=== PATIENT | male | born 1990 | race Hispanic/Latino ===

== ENCOUNTER 2018-02-20 11:34 | Emergency (ER) | payer SELFPAY ==
--- NOTE | 2018-02-20 14:55 | RAD ---
LEFT FOOT THREE VIEWS: History: Foot pain. FINDINGS: Joint spaces all appear fairly well preserved. Spur at the insertion of the Achilles tendon on the ca lcaneus is noted. There is some arthritic changes of the ankle joint seen. There is some deformity to the dorsal side of the talus which is probably on the basis of old injury. IMPRESSION: Arthritic changes of the ankle and some arthritic change to the base of the metatarsals. No acute bon y process. Old appearing injury along the dorsal side of the talus. POS: [facility]
--- NOTE | 2018-02-20 14:56 | RAD ---
PORTABLE AP CHEST RADIOGRAPH RIGHT RIBS THREE VIEWS: Date: 02-20-18 History: Right rib pain. Comparison: 11-16-17 FINDINGS: Cardiac silhouette and pulmonary vasculature are within normal limits. The lungs are clear. No pneumo thorax or pleural effusion is seen. No right sided rib fracture is appreciated. IMPRESSION: 1. No acute cardiopulmonary process. 2. No right sided rib fracture visualized. POS: [facility]
[2018-02-20] MEDS ORDERED: Ketorolac Tromethamine 30 MG/ML VIAL ONE (14:58)
== END 2018-02-20 13:16 | disposition home or self-care (01) ==
LOC: ERS 11:34
DX: M25.572 Pain in left ankle and joints of left foot (principal); R07.81 Pleurodynia; F17.210 Nicotine dependence, cigarettes, uncomplicated
CPT/HCPCS: 96372; J1885

== ENCOUNTER 2018-06-28 17:16 | Emergency (ER) | payer SELFPAY | END 2018-06-28 18:03 | disposition home or self-care (01) | LOC: ERS 17:16 | DX: S39.012A Strain of muscle, fascia and tendon of lower back, initial encounter (principal); S16.1XXA Strain of muscle, fascia and tendon at neck level, initial encounter; F17.210 Nicotine dependence, cigarettes, uncomplicated; X50.0XXA Overexertion from strenuous movement or load, initial encounter | CPT/HCPCS: 99283 ==

== ENCOUNTER 2021-05-10 08:02 | Emergency (ER) | payer SELFPAY ==
[2021-05-10] MEDS ORDERED: Ibuprofen 200 MG TAB ONE (08:22)
[2021-05-10 18:27] LABS: SARS-CoV-2 PCR by NAA DETECTED (NotDetected)
== END 2021-05-10 09:00 | disposition home or self-care (01) ==
LOC: ERS 08:02
DX: U07.1 COVID-19 (principal); F17.210 Nicotine dependence, cigarettes, uncomplicated
CPT/HCPCS: 99283; U0003; U0005

== ENCOUNTER 2021-11-04 12:27 | Emergency (ER) | payer OTHER | END 2021-11-04 14:08 | disposition home or self-care (01) | LOC: ERS 12:27 | DX: S93.402A Sprain of unspecified ligament of left ankle, initial encounter (principal); F17.210 Nicotine dependence, cigarettes, uncomplicated ==

== ENCOUNTER 2023-03-02 11:27 | Inpatient (IN) | payer BC, OTHER, SELFPAY ==
[2023-03-02 12:30] LABS: #Basophils 0.1 thou/uL (0.0-0.2); #Eosinphils 0.3 thou/uL (0.0-0.7); #Lymphocytes 3.1 thou/uL (1.20-3.40); #Monocytes 0.7 thou/uL (0.11-0.59); #Neutrophils 7.1 thou/uL (1.40-6.50); %Basophils 0.7 % (0.0-1.0); %Lymphocytes 27.7 % (21.0-51.0); %Monocytes 5.7 % (0.0-10.0); %Neutrophils 62.9 % (42.0-75.0); Hemoglobin 16.4 g/dL (14.0-18.0); Mean Corpuscular HGB CONC 34.1 g/dL (32.0-36.0); Mean Corpuscular Hemoglobin 32.4 pg (27.0-31.0); Platelet Count 273 10x3/uL (130-400); RBC Distribution Width 12.2 % (11.5-14.5); Red Blood Cell (RBC) Count 5.05 mill/uL (4.70-6.10); White Blood Cell (WBC) Count 11.3 10x3/uL (4.8-10.8)
[2023-03-02 12:47] LABS: ALT (SGPT) 30 U/L (8-55); AST (SGOT) 23 U/L (5-34); Albumin 3.7 g/dL (3.5-5.0); Alkaline Phosphatase 69 U/L (40-110); Anion Gap 12 mmol/L (10-20); BUN (Urea Nitrogen) 9 mg/dL (8.9-20.6); Bilirubin, Total 0.4 mg/dL (0.2-1.2); Calc. Creatinine Clearance 0 mL/min (70-130); Calcium 8.8 mg/dL (7.8-10.44); Carbon Dioxide 24 mmol/L (22-29); Chloride 108 mmol/L (98-107); Estimated GFR 101; Globulin 2.6 g/dL (2.4-3.5); Glucose 120 mg/dL (70-105); Potassium 3.9 mmol/L (3.5-5.1); Protein, Total 6.3 g/dL (6.0-8.3); Sodium 140 mmol/L (136-145)
[2023-03-02] MEDS ORDERED: Ketorolac Tromethamine 30 MG/ML VIAL ONE (14:13)
[2023-03-02 15:17] LABS: Lactic Acid 1.1 mmol/L (0.5-2.2)
[2023-03-02] MEDS ORDERED: Cefepime 2 GM VIAL ONE (17:17)
[2023-03-02] MEDS ORDERED: VANCOMYCIN 2 GRAM/500 ML BAG 2 GM in Premix Bag 1 BAG IVPB SCH (18:45)
[2023-03-02] MEDS ORDERED: Acetaminophen 500 MG TAB ONE (20:28)
[2023-03-02] MEDS ORDERED: Ibuprofen 800 MG TAB ONE (20:28)
[2023-03-02] MEDS: Acetaminophen 500 MG TAB PO SCH (20:41)
[2023-03-02] MEDS: Ibuprofen 800 MG TAB PO SCH (20:42)
[2023-03-02] MEDS: Lactated Ringer's 1,000 ML IV SCH (20:49)
[2023-03-02 20:57] VITALS: BMI 36.1
[2023-03-02] MEDS ORDERED: Morphine 2 MG/ML VIAL ONE (23:28)
[2023-03-02] MEDS: Morphine 2 MG/ML VIAL SLOW IVP PRN (23:36)
[2023-03-03] MEDS ORDERED: Acetaminophen 500 MG TAB ONE (03:39)
[2023-03-03] MEDS ORDERED: Ibuprofen 800 MG TAB ONE (03:39)
[2023-03-03] MEDS: Ibuprofen 800 MG TAB PO SCH ×2 (03:47→10:30)
[2023-03-03] MEDS: Acetaminophen 500 MG TAB PO SCH ×3 (03:48→13:45)
[2023-03-03] MEDS ORDERED: Cefepime 2 GM VIAL ONE (04:54)
[2023-03-03] MEDS ORDERED: Cefepime 2 GM in Sodium Chloride 0.9% 100 ML IVPB SCH (05:00)
[2023-03-03] MEDS: VANCOMYCIN 1.25 GM/250 ML BAG 1.25 GM in Premix Bag 1 BAG IVPB SCH ×2 (05:51→14:45)
[2023-03-03 06:59] LABS: #Eosinphils 0.4 thou/uL (0.0-0.7); #Lymphocytes 2.9 thou/uL (1.20-3.40); #Monocytes 0.6 thou/uL (0.11-0.59); #Neutrophils 4.1 thou/uL (1.40-6.50); %Basophils 0.5 % (0.0-1.0); %Eosinophils 4.8 % (0.0-10.0); %Lymphocytes 36.7 % (21.0-51.0); %Monocytes 7.1 % (0.0-10.0); %Neutrophils 50.9 % (42.0-75.0); Hemoglobin 14.4 g/dL (14.0-18.0); Mean Corpuscular HGB CONC 33.5 g/dL (32.0-36.0); Mean Corpuscular Hemoglobin 32.1 pg (27.0-31.0); Mean Corpuscular Volume 95.9 fl (78.0-98.0); Mean Platelet Volume 7.1 fL (7.4-10.4); Platelet Count 240 10x3/uL (130-400); RBC Distribution Width 12.1 % (11.5-14.5); Red Blood Cell (RBC) Count 4.49 mill/uL (4.70-6.10)
[2023-03-03 07:18] LABS: Anion Gap 10 mmol/L (10-20); BUN (Urea Nitrogen) 10 mg/dL (8.9-20.6); Calc. Creatinine Clearance 246 mL/min (70-130); Calcium 8.5 mg/dL (7.8-10.44); Carbon Dioxide 23 mmol/L (22-29); Chloride 111 mmol/L (98-107); Estimated GFR 121; Glucose 97 mg/dL (70-105); Potassium 4.3 mmol/L (3.5-5.1); Sodium 140 mmol/L (136-145)
[2023-03-03] MEDS ORDERED: Ondansetron ORAL SOLN. 4 MG/5 ML UDCUP PO PRN (08:26)
[2023-03-03] MEDS ORDERED: Ondansetron ODT 4 MG TAB PO PRN (08:35)
[2023-03-03] MEDS: Morphine 2 MG/ML VIAL SLOW IVP PRN (09:27)
[2023-03-03] MEDS: Lactated Ringer's 1,000 ML IV SCH ×2 (11:06→12:52)
[2023-03-03 13:48] VITALS: TEMP 98
[2023-03-03 16:13] VITALS: BP 116/67
== END 2023-03-03 16:35 | disposition home or self-care (01) | DRG 603 ==
LOC: ERS 11:27 → T4-B 17:26 → ERHOLD 17:33 → T4-B 03-03 09:11
PROVIDERS: ADMIT Student in an Organized Health Care Education/Training Program; ATTEND Emergency Medicine
DX: L03.115 Cellulitis of right lower limb (principal); M65.9 Synovitis and tenosynovitis, unspecified; M77.8 Other enthesopathies, not elsewhere classified; F17.210 Nicotine dependence, cigarettes, uncomplicated; Z80.51 Family history of malignant neoplasm of kidney; Z81.8 Family history of other mental and behavioral disorders
CPT/HCPCS: 36415; 80048; 80053; 83605; 85025; 85652; 86140; 87040; J0692; J1885; J2272; J3370; J3490; J7120; Q0162

== ENCOUNTER 2023-11-21 21:45 | Emergency (ER) | payer BC, OTHER ==
[2023-11-21] MEDS ORDERED: Ibuprofen 200 MG TAB ONE (22:31)
[2023-11-21] MEDS ORDERED: HYDROcodone/Acetaminophen 5/325 mg Tablet ONE (23:11)
== END 2023-11-22 02:30 | disposition home or self-care (01) ==
LOC: ERS 21:45
DX: S52.041A Displaced fracture of coronoid process of right ulna, initial encounter for closed fracture (principal); F17.210 Nicotine dependence, cigarettes, uncomplicated; W18.30XA Fall on same level, unspecified, initial encounter
CPT/HCPCS: 29105

== ENCOUNTER 2025-07-25 10:31 | Observation (INO) | payer OTHER, SELFPAY ==
[2025-07-25 11:25] LABS: #Basophils 0.05 10x3/uL (0.0-0.2); #Eosinophils 0.17 10x3/uL (0.0-0.7); #Monocytes 0.51 10x3/uL (0.11-0.59); #Neutrophils 6.75 10x3/uL (1.40-6.50); %Basophils 0.5 % (0.0-1.0); %Eosinophils 1.8 % (0.0-10.0); %Lymphocytes 20.1 % (21.0-51.0); %Monocytes 5.4 % (0.0-10.0); %Neutrophils 71.9 % (42.0-75.0); Hematocrit 42.9 % (42.0-52.0); Hemoglobin 13.8 g/dL (14.0-18.0); Mean Corpuscular Hemoglobin 30.4 pg (27.0-31.0); Mean Corpuscular Volume 94.5 fL (78.0-98.0); Platelet Count 236 10x3/uL (130-400); Red Blood Cell (RBC) Count 4.54 mill/uL (4.70-6.10); White Blood Cell (WBC) Count 9.40 10x3/uL (4.8-10.8)
[2025-07-25] MEDS ORDERED: Ondansetron PF 4 MG/2 ML Vial ONE ×2 (11:46→14:41)
[2025-07-25] MEDS ORDERED: Famotidine/PF 20 mg/2ml Vial ONE (11:46)
[2025-07-25] MEDS ORDERED: Pantoprazole 40 MG VIAL ONE (11:46)
[2025-07-25 11:51] LABS: ALT (SGPT) 24 U/L (Less than 45); AST (SGOT) 27 U/L (11-34); Albumin 4.1 g/dL (3.1-4.5); Alkaline Phosphatase 71 U/L (40-110); Anion Gap 9 mmol/L (10-20); BUN (Urea Nitrogen) 10 mg/dL (8.9-20.6); Bilirubin, Total 0.2 mg/dL (0.3-1.2); Calc. Creatinine Clearance 0 mL/min (70-130); Calcium 9.3 mg/dL (7.8-10.44); Carbon Dioxide 25 mmol/L (22-29); Chloride 109 mmol/L (98-107); Globulin 3.0 g/dL (2.4-3.5); Glucose 93 mg/dL (70-105); Lipase 25 U/L (8-78); Potassium 4.1 mmol/L (3.5-5.1); Sodium 139 mmol/L (136-145)
[2025-07-25 11:53] LABS: CAUTI Indications for Culture Dysuria,urgency,freq; Glucose, Urine (Dipstick) Normal (Negative); Leukocyte 75 Leu/uL (Negative); Protein, Urine (Dipstick) Negative (Neg-Trace); Specific Gravity, Urine 1.031 (1.002-1.036)
[2025-07-25 11:54] LABS: Bacteria/HPF 1+ HPF (None Seen)
[2025-07-25 11:55] LABS: Urine Culture Reflex No No
[2025-07-25] MEDS ORDERED: Ketorolac Tromethamine 30 MG (1 mL) VIAL ONE (12:48)
[2025-07-25] MEDS ORDERED: Ondansetron PF 4 MG/2 ML Vial IVP PRN (13:35)
[2025-07-25] MEDS ORDERED: Mag-Al 1200 mg/1200 mg/30 ML UDCUP PO PRN (13:35)
[2025-07-25] MEDS ORDERED: hydrALAZINE 20 MG/ML VIAL SLOW IVP PRN (13:35)
[2025-07-25] MEDS ORDERED: Calcium Carbonate 500 MG ChewTAB PO PRN (13:35)
[2025-07-25] MEDS ORDERED: Glucagon 1 MG/ML KIT IM PRN (13:35)
[2025-07-25] MEDS ORDERED: Dextrose 50% Abboject 50 ML SYRINGE SLOW IVP PRN (13:35)
[2025-07-25] MEDS ORDERED: Acetaminophen 325 MG TAB PO PRN (13:35)
[2025-07-25] MEDS ORDERED: Bupivacaine 0.25% HCL 30 ML VIAL ONE (14:10)
[2025-07-25] MEDS ORDERED: Lidocaine 1% PF 5 ML VIAL ONE (14:37)
[2025-07-25] MEDS ORDERED: Rocuronium Bromide 10 MG/ML (10ML VIAL) ONE (14:37)
[2025-07-25] MEDS ORDERED: PROPOFOL 20 ML ONE (14:37)
[2025-07-25] MEDS ORDERED: HYDROmorphone 2 MG/ML VIAL ONE (15:26)
[2025-07-25] MEDS ORDERED: Glycopyrrolate 0.2 MG/ML 5 ML SYRINGE ONE (16:21)
[2025-07-25] MEDS ORDERED: NEOSTIGMINE 3 MG/3 ML SYRINGE ONE (16:21)
[2025-07-25] MEDS ORDERED: HYDROcodone/Acetaminophen 5/325 mg Tablet ONE (17:25)
[2025-07-25 20:35] VITALS: BMI 28.0
[2025-07-25] MEDS: Ketorolac Tromethamine 30 MG (1 mL) VIAL IVP SCH (21:03)
[2025-07-25] MEDS: Famotidine 20 MG TAB PO SCH (21:20)
[2025-07-25] MEDS: Famotidine/PF 20 mg/2ml Vial SLOW IVP SCH (21:33)
[2025-07-26 06:28] LABS: #Basophils Less than 0.03 10x3/uL (0.0-0.2); #Eosinophils Less than 0.03 10x3/uL (0.0-0.7); #Monocytes 0.55 10x3/uL (0.11-0.59); #Neutrophils 8.27 10x3/uL (1.40-6.50); %Basophils 0.2 % (0.0-1.0); %Eosinophils 0.1 % (0.0-10.0); %Lymphocytes 14.0 % (21.0-51.0); %Monocytes 5.3 % (0.0-10.0); %Neutrophils 80.1 % (42.0-75.0); Hematocrit 40.4 % (42.0-52.0); Hemoglobin 13.5 g/dL (14.0-18.0); Mean Corpuscular Hemoglobin 30.9 pg (27.0-31.0); Mean Corpuscular Volume 92.4 fL (78.0-98.0); Platelet Count 222 10x3/uL (130-400); Red Blood Cell (RBC) Count 4.37 mill/uL (4.70-6.10); White Blood Cell (WBC) Count 10.33 10x3/uL (4.8-10.8)
[2025-07-26 07:05] LABS: ALT (SGPT) 54 U/L (Less than 45); AST (SGOT) 48 U/L (11-34); Albumin 3.4 g/dL (3.1-4.5); Alkaline Phosphatase 65 U/L (40-110); Anion Gap 9 mmol/L (10-20); BUN (Urea Nitrogen) 8 mg/dL (8.9-20.6); Bilirubin, Total 0.4 mg/dL (0.3-1.2); Calc. Creatinine Clearance 226 mL/min (70-130); Calcium 8.8 mg/dL (7.8-10.44); Carbon Dioxide 26 mmol/L (22-29); Chloride 106 mmol/L (98-107); Globulin 2.8 g/dL (2.4-3.5); Glucose 133 mg/dL (70-105); Potassium 4.1 mmol/L (3.5-5.1); Sodium 137 mmol/L (136-145)
[2025-07-26 10:17] VITALS: BP 100/65; TEMP 98.3
== END 2025-07-26 11:05 | disposition home or self-care (01) ==
LOC: ERS 10:31 → ERHOLD 13:39 → SURG A 19:34
PROVIDERS: ADMIT Surgery Trauma Surgery; ATTEND Surgery Trauma Surgery
PROC: 0FT44ZZ Resection of Gallbladder, Percutaneous Endoscopic Approach (ICD-10-PCS; principal; 2025-07-25)
DX: K80.00 Calculus of gallbladder with acute cholecystitis without obstruction (principal)
CPT/HCPCS: 36415; 76705; 80053; 81001; 83690; 85025; 88304; 93005; 96361; 96374; 96375; C1889; C9250-JZ; J0169; J0665; J1100; J1171; J1885; J2250; J2470; J2543; J2704; J7120; S2900

== ENCOUNTER 2025-07-27 12:32 | Emergency (ER) | payer SELFPAY ==
[~2025-07-27 12:32] MED LIST: Iopamidol-370 76% 500 ML MDV (1 ML CHARGE) ONE
[2025-07-27] MEDS ORDERED: Ketorolac Tromethamine 30 MG (1 mL) VIAL ONE (13:27)
[2025-07-27] MEDS ORDERED: Acetaminophen 500 MG TAB ONE ×2 (13:27→13:35)
[2025-07-27 13:38] LABS: #Basophils 0.05 10x3/uL (0.0-0.2); #Eosinophils 0.14 10x3/uL (0.0-0.7); #Monocytes 0.73 10x3/uL (0.11-0.59); #Neutrophils 3.39 10x3/uL (1.40-6.50); %Basophils 0.7 % (0.0-1.0); %Eosinophils 1.9 % (0.0-10.0); %Lymphocytes 42.7 % (21.0-51.0); %Monocytes 9.7 % (0.0-10.0); %Neutrophils 44.7 % (42.0-75.0); Hematocrit 37.4 % (42.0-52.0); Hemoglobin 12.3 g/dL (14.0-18.0); Mean Corpuscular Hemoglobin 31.0 pg (27.0-31.0); Mean Corpuscular Volume 94.2 fL (78.0-98.0); Platelet Count 205 10x3/uL (130-400); Red Blood Cell (RBC) Count 3.97 mill/uL (4.70-6.10); White Blood Cell (WBC) Count 7.56 10x3/uL (4.8-10.8)
[2025-07-27 14:03] LABS: ALT (SGPT) 51 U/L (Less than 45); AST (SGOT) 41 U/L (11-34); Albumin 3.7 g/dL (3.1-4.5); Alkaline Phosphatase 61 U/L (40-110); Anion Gap 12 mmol/L (10-20); BUN (Urea Nitrogen) 10 mg/dL (8.9-20.6); Bilirubin, Total 0.3 mg/dL (0.3-1.2); Calc. Creatinine Clearance 0 mL/min (70-130); Calcium 9.0 mg/dL (7.8-10.44); Carbon Dioxide 25 mmol/L (22-29); Chloride 107 mmol/L (98-107); Globulin 3.0 g/dL (2.4-3.5); Glucose 70 mg/dL (70-105); Lipase 33 U/L (8-78); Potassium 4.0 mmol/L (3.5-5.1); Sodium 140 mmol/L (136-145)
== END 2025-07-27 14:55 | disposition home or self-care (01) ==
LOC: ERS 12:32
DX: G89.18 Other acute postprocedural pain (principal); K91.870 Postprocedural hematoma of a digestive system organ or structure following a digestive system procedure; R94.5 Abnormal results of liver function studies; F17.210 Nicotine dependence, cigarettes, uncomplicated; Z90.49 Acquired absence of other specified parts of digestive tract
CPT/HCPCS: 74177; 80053; 83690; 85025; 93005; 96374; J1885

== ENCOUNTER 2025-07-31 01:32 | Emergency (ER) | payer SELFPAY ==
[2025-07-31] MEDS ORDERED: Ondansetron PF 4 MG/2 ML Vial ONE (03:00)
[2025-07-31 03:04] LABS: #Basophils 0.04 10x3/uL (0.0-0.2); #Eosinophils 0.30 10x3/uL (0.0-0.7); #Monocytes 0.72 10x3/uL (0.11-0.59); #Neutrophils 5.96 10x3/uL (1.40-6.50); %Basophils 0.4 % (0.0-1.0); %Eosinophils 2.9 % (0.0-10.0); %Lymphocytes 32.1 % (21.0-51.0); %Monocytes 6.9 % (0.0-10.0); %Neutrophils 57.4 % (42.0-75.0); Hematocrit 42.0 % (42.0-52.0); Hemoglobin 13.9 g/dL (14.0-18.0); Mean Corpuscular Hemoglobin 31.0 pg (27.0-31.0); Mean Corpuscular Volume 93.8 fL (78.0-98.0); Platelet Count 268 10x3/uL (130-400); Red Blood Cell (RBC) Count 4.48 mill/uL (4.70-6.10); White Blood Cell (WBC) Count 10.38 10x3/uL (4.8-10.8)
[2025-07-31 03:23] LABS: ALT (SGPT) 33 U/L (Less than 45); AST (SGOT) 27 U/L (11-34); Albumin 3.8 g/dL (3.1-4.5); Alkaline Phosphatase 68 U/L (40-110); Anion Gap 16 mmol/L (10-20); BUN (Urea Nitrogen) 10 mg/dL (8.9-20.6); Bilirubin, Total 0.3 mg/dL (0.3-1.2); Calc. Creatinine Clearance 0 mL/min (70-130); Calcium 9.4 mg/dL (7.8-10.44); Carbon Dioxide 25 mmol/L (22-29); Chloride 103 mmol/L (98-107); Globulin 3.1 g/dL (2.4-3.5); Glucose 93 mg/dL (70-105); Lipase 20 U/L (8-78); Potassium 4.4 mmol/L (3.5-5.1); Sodium 140 mmol/L (136-145)
[2025-07-31] MEDS ORDERED: Iopamidol 370 76% 100 ML VIAL ONE (13:50)
== END 2025-07-31 05:57 | disposition home or self-care (01) ==
LOC: ERS 01:32
DX: M25.561 Pain in right knee (principal); R10.9 Unspecified abdominal pain; F17.290 Nicotine dependence, other tobacco product, uncomplicated; F17.210 Nicotine dependence, cigarettes, uncomplicated; W01.0XXA Fall on same level from slipping, tripping and stumbling without subsequent striking against object, initial encounter
CPT/HCPCS: 74177; 80053; 83690; 85025; 96374; 96375; Q9967